=== PATIENT | male | born 1990 | race Caucasian/White ===

== ENCOUNTER 2017-01-08 09:10 | Emergency (ER) | payer BC, OTHER ==
[2017-01-08 09:15] VITALS: BP 140/73; PULSE 61; RESP 16; TEMP 97.7; O2SAT 100
--- NOTE | 2017-01-08 09:49 | EDPHY ---
H & P Smoking Status: Never smoked Time Seen by Provider: 01/08/17 09:26 HPI/ROS: CHIEF COMPLAINT: Left hand injury HISTORY OF PRESENT ILLNESS: 26-year-old male presents to the emergency department by private vehicle complaining of isolated pain to the left hand. Patient was rock climbing and went shift his weight and somehow twisted his left hand and felt severe pain isolated to the palm of the left hand. He continued to rock climb however continued to have pain in his left hand. He complains of isolated pain to the palm of the left hand. He is right-hand dominant. ROS: Denies numbness or tingling in his fingers, pain in his left wrist or elbow. (Negrita Li) Past Medical/Surgical History: Negative (Negrita Li) Social History: Works as a android programmer. (Negrita Li) Physical Exam: On examination there is no swelling noted in his left hand. He has full flexion and extension of his fingers of the left hand. Mild pain with palpation over the 2nd, 3rd, 4th, and 5th MCP joints. No palpable crepitus or other bony abnormality. No rotational deformities noted. Radial, median, and ulnar nerves are all intact. Normal sensation to light touch with normal 2 point discrimination. (Negrita Li) Constitutional: Initial Vital Signs Temperature (C) 36.5 C 01/08/17 09:13 Heart Rate 61 01/08/17 09:13 Respiratory Rate 16 01/08/17 09:13 Blood Pressure 140/73 H 01/08/17 09:13 O2 Sat (%) 100 01/08/17 09:13 O2 Delivery Mode Room Air Allergies/Adverse Reactions: No Known Allergies Allergy (Verified 06/02/15 11:38) Home Medications: Medication Instructions Recorded No Home Meds 05/27/15 MDM/Departure - MDM Diagnostics: X-rays of the left hand reveal no fractures. This is reviewed by myself the PAC system. Radiology interpretation to follow. (Negrita Li) Procedures: The patient was placed in a volar left hand splint. This was examined post application in good placement with normal PILE OPERATOR. (Negrita Li) ED Course/Re-evaluation: 26-year-old male presents with left hand injury. X-rays reveal no fractures. Patient was placed in a splint and given orthopedic referral. (Negrita Li) - Depart Disposition: Home, Routine, Self-Care Clinical Impression: Sprain of left hand Qualifiers: Encounter type: initial encounter Qualifier Code: (S63.92XA) Sprain of unspecified part of left wrist and hand, initial encounter Condition: Good Instructions: Hand Sprain (ED) Additional Instructions: Ibuprofen 600 mg every 8 hours as needed for pain. Activity as tolerated. Splint for comfort and support. Follow up with orthopedic surgeon in 1 week to recheck. Referrals: Tal Hartmann MD [Medical Doctor] - 5-7 days, call for appt. (Orthopedic surgeon on-call)
--- NOTE | 2017-01-08 10:39 | DX ---
Left hand, 3 views. History: Left hand pain after climbing injury. Pain at third and fourth fingers. Findings: Normal mineralization and alignment. No evidence for acute fracture or dislocation. Probabl e small capsular calcification at the third PIP joint seen only on the oblique view. No evidence for periarticular erosion. Impression: No evidence for acute fracture.
== END 2017-01-08 10:12 | disposition home or self-care (01) ==
DX: S63.92XA Sprain of unspecified part of left wrist and hand, initial encounter (principal); X58.XXXA Exposure to other specified factors, initial encounter; Y92.89 Other specified places as the place of occurrence of the external cause; Y93.31 Activity, mountain climbing, rock climbing and wall climbing